=== PATIENT | female | born 1975 | race Caucasian/White ===

== ENCOUNTER → 2023-09-04 | Outpatient (CLI) | payer BC | LOC: RAD 07:35 | DX: N92.6 Irregular menstruation, unspecified (principal) ==

== ENCOUNTER 2024-05-31 16:54 | Emergency (ER) | payer BC ==
[~2024-05-31] VITALS: Ht 160 cm; Wt 75.0 kg
[2024-05-31] MEDS ORDERED: diphenhydrAMINE 50 MG/ML 1 ML VIAL IV ONE (17:15)
[2024-05-31] MEDS ORDERED: Famotidine 20 MG/2 ML VIAL IV ONE (17:15)
[2024-05-31] MEDS ORDERED: NS 1,000 ML IV SCH (17:15)
[2024-05-31] MEDS ORDERED: methylPREDNISolone Sod Succ 125 MG/2 ML VIAL IV ONE (17:15)
[2024-05-31 17:34] LABS: BASO # 0.06 K/mm3 (0.02-0.10); EOS # 0.26 K/mm3 (0.04-0.40); EOS % 2.6 % (1.0-5.0); HEMATOCRIT 45.3 % (37.0-47.0); HEMOGLOBIN 15.4 g/dL (12.5-16.0); LYMPH# 3.24 K/mm3 (1.50-4.00); MEAN CELL VOLUME 92 fl (78-100); MEAN CORPUSCULAR HEMOGLOBIN 31 pg (27-31); MEAN CORPUSCULAR HGB CONC 34 g/dL (33-37); MEAN PLATELET VOLUME 11.1 fl (7.4-10.4); MONO # 0.94 K/mm3 (0.20-0.80); PLATELET COUNT 256 K/mm3 (130-400); RED CELL DISTRIBUTION WIDTH 11.8 % (11.5-14.5); WHITE BLOOD COUNT 10.1 K/mm3 (4.8-10.8)
[2024-05-31 17:44] LABS: ALBUMIN 3.9 g/dL (3.5-5.0); SODIUM 137 mmol/L (136-145)
[2024-05-31 17:45] LABS: CALCIUM 9.1 mg/dL (8.3-10.5)
[2024-05-31] MEDS ORDERED: EPINEPHrine 0.3 MG/0.3 ML Auto Injector IM ONE (17:45)
[2024-05-31] MEDS ORDERED: Ondansetron 4 MG/2 ML VIAL IV ONE (17:45)
[2024-05-31 17:46] LABS: GLUCOSE 120 mg/dL (65-105); TOTAL PROTEIN 6.1 g/dL (6.4-8.3)
[2024-05-31 17:48] LABS: TOTAL BILIRUBIN 0.5 mg/dL (0.2-1.2)
[2024-05-31 17:52] LABS: AST-SGOT 16 U/L (5-34)
[2024-05-31 17:53] LABS: ALT/SGPT 13 U/L (0-55)
[2024-05-31 17:54] LABS: D-DIMER 0.71 mg/L FEU (0.15-0.50)
[2024-05-31 17:55] LABS: CARBON DIOXIDE 17 mmol/L (22-29)
[2024-05-31 18:00] LABS: TROPONIN-I < 0.030 ng/mL (0.00-0.033)
[2024-05-31] MEDS ORDERED: Iohexol 350 - 100 ML VIAL IV ONE (18:03)
[2024-05-31] MEDS ORDERED: EPIPEN 2-PAK1 MG/ML MR (20:41)
[2024-05-31 21:35] VITALS: BP 111/58
== END 2024-05-31 21:35 | disposition home or self-care (01) ==
LOC: ED 16:54
PROVIDERS: Physician Assistant
DX: T78.2XXA Anaphylactic shock, unspecified, initial encounter (principal); E87.6 Hypokalemia; R79.1 Abnormal coagulation profile; X58.XXXA Exposure to other specified factors, initial encounter
CPT/HCPCS: J1200; J2405; J2919; J3490; J7030; Q9967